=== PATIENT | male | born 1955 | race Caucasian/White ===

== ENCOUNTER 2022-01-15 13:36 | Emergency (ER) | payer MEDICARE, OTHER ==
[~2022-01-15] VITALS: Ht 180.3 cm; Wt 72.6 kg
[2022-01-15 13:36] VITALS: BP 155/71
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
--- NOTE | 2022-01-15 14:52 | DIREP ---
PROCEDURE:XRAY RIBS W/PA CHEST 3VWS-LT COMPARISON:None. INDICATIONS:pain S/P fall TECHNIQUE:PA chest and 5 view of the left ribs FINDINGS: LEFT RIBS:Subtle fractures of the left 4th and 5th ribs anterior laterally. LUNGS/PLEURA: No significant pulmonary parenchymal abnormalities. CARDIAC: Normal size cardiac silhouette and normal vascularity. MEDIASTINUM: Mediastinal contours appear within acceptable limits. OTHER: No additional findings. CONCLUSION: 1. Subtle fractures of the left 4th and 5th ribs anterior laterally. 2. No pneumothorax or other acute cardiopulmonary abnormality is identified. Dictated by: Manjit Mckeon M.D. On 01/15/2022 at 02:49 PM
== END 2022-01-15 15:37 | disposition home or self-care (01) ==
LOC: ER 13:36
DX: S22.42XA Multiple fractures of ribs, left side, initial encounter for closed fracture (principal); V18.4XXA Pedal cycle driver injured in noncollision transport accident in traffic accident, initial encounter; Y93.55 Activity, bike riding; Y92.410 Unspecified street and highway as the place of occurrence of the external cause; Y99.8 Other external cause status; Z86.73 Personal history of transient ischemic attack (TIA), and cerebral infarction without residual deficits
CPT/HCPCS: 99284; 71101-LT